=== PATIENT | male | born 1955 | race Hispanic/Latino ===

== ENCOUNTER 2025-02-02 10:35 | Inpatient (IN) | payer OTHER ==
[~2025-02-02] VITALS: Ht 172.7 cm; Wt 107.5 kg
--- NOTE | 2025-02-02 10:53 | ERN ---
ED Note History of Present Illness Stated Complaint: ABNORMAL LABS Chief Complaint: Low Back Pain/Injury Time Seen by MD: 10:39 Dictation: Is a 69-year-old male [facility] of thoracic pain he has had for 1-1/2 months runs down his left leg. He denies any fever chills trauma. no change in bowel or bladder function he had some labs with the him that were [facility] the [facility] [place] [id number] WBCs. Etiology of the leukocytosis is unknown. He has not been referred to a neurosurgeon, was told to go to the nearest emergency room for follow up and management. Back braces in place Allergies: Coded Allergies: No Known Drug Allergies (Unverified Allergy, Unknown, 02/02/25) Past Medical History Past Medical History: No Pertinent History Surgical History: None RN Note Reviewed/Agreed w/PFSH: Yes Review of System Dictation CONSTITUTIONAL: Negative except for HPI HEAD/FACE: Negative except for HPI EENT: Negative except for HPI RESPIRATORY: Negative except for HPI GASTROINTESTINAL/ABDOMINAL: Negative except for HPI GENITOURINARY: Negative except for HPI MUSCULOSKELETAL: Negative except for HPI thoracic and lumbar pain with left sciatica INTEGUMENTARY: Negative except for HPI NEUROLOGICAL/PSYCH: Negative except for HPI HEMATOLOGIC/LYMPHATIC: Negative except for HPI All Systems Negative, Except as noted above. 13 point review of systems assessed and all negative except for above. Initial Vital Sign VS Vital Signs Date Time Temp Pulse Resp B/P (MAP) Pulse Ox O2 Delivery O2 Flow Rate FiO2 02/02/25 10:41 98.2 89 16 178/95 96 Room Air 0 02/02/25 10:58 21 Physical Exam Dictation Vital Signs reviewed General Appearance: Alert, oriented x 3, monitor acute distress, well developed, nourished. Head and Face: non-traumatic. Eyes: PERRL, pink conjunctivas, eyelid no trauma, anterior chamber with arcus senilis. Ears: Pinnas intact and no signs of trauma or erythema ear canals clear and no discharge TM no erythema Nose: No discharge, no bleeding. Oropharynx: Mouth normal, tongue pink, pharynx clear,no erythema, tonsils no exudates, no abscesses noted, mucous membrane moist Neck: Supple, non-tender, no thyromegaly, no masses, no JVD, no bruits Breast:Deferred Chest:No tenderness, no crepitus, no paradoxical movement, no retractions Lungs:Clear, well-ventilated, symmetric, no rales, no wheezing, no rhonchi, no stridor, good breath sounds bilaterally Heart: Regular rate, regular rhythm, no murmur, no gallops Vascular: no peripheral edema, Abdomen: Soft, positive bowel sounds, nondistended, no guarding, nontender, no rebound, no masses no hepatomegaly, no splenomegaly, no Williamson's sign, no hernias. Rectal: Deferred Genital: Deferred Neurological: Normal speech, motor function intact, sensory function intact Musculoskeletal: Neck nontender, full range of motion, moderate midline thoracic and lumbosacral tenderness. Negative straight leg raise to 10 bilateral Extremities: nontender, full range of motion Skin: Color pink, dry, no turgor, no rash, no lacerations, no abrasions, no contusions. Lymphatic: Deferred Results (Laboratory/Radiology) Laboratory/Radiology Laboratory Tests Test 02/02/25 10:56 02/02/25 12:08 02/02/25 12:20 02/02/25 12:33 White Blood Count 15.8 K/uL (4.8-10.8) H Red Blood Count 5.48 MIL/uL (4.50-6.20) Hemoglobin 15.5 g/dL (14.0-18.0) Hematocrit 45.7 % (42-54) Mean Corpuscular Volume 83.4 fL (79-99) Mean Corpuscular Hemoglobin 28.3 pg (27.0-33.0) Mean Corpuscular Hemoglobin Concent 33.9 g/dL (32.0-36.0) Red Cell Distribution Width 14.6 % (11.0-15.5) Platelet Count 335 K/uL (130-400) Mean Platelet Volume 9.1 fL (7.5-10.5) Immature Granulocyte % (Auto) 0.6 % (0-1) Neutrophils (%) (Auto) 62.3 % (40.0-77.0) Lymphocytes (%) (Auto) 26.9 % (21.0-51.0) Monocytes (%) (Auto) 8.1 % (3.0-13.0) Eosinophils (%) (Auto) 1.3 % (0.0-8.0) Basophils (%) (Auto) 0.8 % (0.0-5.0) Neutrophils # (Auto) 9.8 K/uL (1.8-7.7) H Lymphocytes # (Auto) 4.2 K/uL (1.0-4.8) Monocytes # (Auto) 1.3 K/uL (0.1-1.0) H Eosinophils # (Auto) 0.21 K/uL (0.00-0.70) Basophils # (Auto) 0.12 K/uL (0.00-0.20) Absolute Immature Granulocyte (auto 0.10 K/uL (0-1) Nucleated Red Blood Cells 0.0 % (0.0-0.19) Sodium Level 136 mmol/L (136-145) Potassium Level 3.6 mmol/L (3.5-5.1) Chloride Level 100 mmol/L (101-111) L Carbon Dioxide Level 30 mmol/L (21-32) Blood Urea Nitrogen 8 mg/dL (7-18) Creatinine 0.7 mg/dL (0.5-1.3) Glomerular Filtration Rate Calc 100 mL/min (>90) Random Glucose 253 mg/dL (70-105) H Total Calcium 8.9 mg/dL (8.5-10.1) Influenza Type A Antigen Negative For Type A Influenza Type B Antigen Negative For Type B SARS-CoV-2 Antigen (Rapid) PRESUMPTIVE NEGATIVE Group A Streptococcus Rapid negative (NEGATIVE) Lactic Acid Level 1.2 mmol/L (0.8-2.5) Urine Color LIGHT-YELLOW (YELLOW) Urine Appearance CLEAR (CLEAR) Urine pH 7.0 (5.0-8.0) Urine Specific [place] 1.009 (1.001-1.031) Urine Protein NEGATIVE mg/dL (NEGATIVE) Urine Glucose (UA) 500 mg/dL (NEGATIVE) H Urine Ketones NEGATIVE mg/dL (NEGATIVE) Urine Occult Blood NEGATIVE (NEGATIVE) Urine Nitrate NEGATIVE (NEGATIVE) Urine Bilirubin NEGATIVE mg/dL (NEGATIVE) Urine Urobilinogen 0.2 mg/dL (0.2-1.0) Urine Leukocyte Esterase 75 Oscar/uL (NEGATIVE) H Urine RBC 0-1 /HPF (0-1) Urine WBC 2-5 /HPF (0-1) H Urine Squamous Epithelial Cells RARE /HPF (0-2) Urine Transitional Epithelial Cells RARE /HPF (None Seen) Urine Bacteria RARE /HPF (None Seen) CHEST 1VW HISTORY: Shortness of breath COMPARISON: None FINDINGS: A frontal projection of the chest was obtained. No acute pulmonary infiltrates is seen. The heart is normal in size. Prominent interstitial markings are seen. No evidence of aortic calcification is seen. IMPRESSION: 1. No acute pulmonary infiltrate is seen. FINDINGS: ON NONCONTRAST IMAGING: ABDOMEN: Heart size is normal. Coronary arterial wall calcific plaque noted. Visible lung bases are clear. No abnormal renal calcifications, hydronephrosis, perinephric inflammation, or proximal hydroureter detected. Residual contrast within the urinary system. The liver is normal in size and smooth in contour without biliary duct dilation. The spleen is normal in size and attenuation. The gallbladder appears normal. The pancreas appears normal without pancreatic duct dilation. The adrenal glands appear normal. No significant abdominal, retrocrural or retroperitoneal adenopathy noted. No evidence for intra-abdominal free air or organized fluid collection. Mild calcific plaque is noted along the abdominal aortic and iliac vessel mcmullen without aneurysmal dilation. PELVIS: Very small fat-containing nonobstructing right inguinal hernia. No abnormal calcifications within the urinary bladder or distal ureters. No evidence for free air or organized pelvic fluid collection. No significant pelvic adenopathy detected. Visualized small and large bowel loops appear unremarkable. Terminal ileum appears unremarkable. The appendix appears normal. Chronic bilateral L5 spondylolysis contributing to low-grade (14 mm) anterolisthesis of L5 upon S1. Moderate to severe disc height loss at the same level. Secondary at least moderate bilateral neuroforaminal narrowing. Shallow lumbar levoscoliosis. Multilevel mild anterior endplate osteophytic spurring. Multilevel moderate bilateral facet disease, including moderate bilateral hypertrophic facet disease at the L3-L4 level, L4-L5 level, and much less pronounced at the L5-S1 level. IMPRESSION: Very small fat-containing nonobstructing right inguinal hernia without evidence for any acute intra-abdominal or pelvic process. Chronic bilateral L5 spondylolysis contributing to low-grade (14 mm) anterolisthesis of L5 upon S1, and secondary at least moderate bilateral neuroforaminal narrowing without any significant central canal stenosis. Arteriosclerotic disease as described. he spleen is normal in size and attenuation. The gallbladder appears normal. The pancreas appears normal without pancreatic duct dilation. The adrenal glands appear normal. No significant abdominal, retrocrural or retroperitoneal adenopathy noted. No evidence for intra-abdominal free air or organized fluid collection. Mild calcific plaque is noted along the abdominal aortic and iliac vessel mcmullen without aneurysmal dilation. PELVIS: Very small fat-containing nonobstructing right inguinal hernia. No abnormal calcifications within the urinary bladder or distal ureters. No evidence for free air or organized pelvic fluid collection. No significant pelvic adenopathy detected. Visualized small and large bowel loops appear unremarkable. Terminal ileum appears unremarkable. The appendix appears normal. Chronic bilateral L5 spondylolysis contributing to low-grade (14 mm) anterolisthesis of L5 upon S1. Moderate to severe disc height loss at the same level. Secondary at least moderate bilateral neuroforaminal narrowing. Shallow lumbar levoscoliosis. Multilevel mild anterior endplate osteophytic spurring. Multilevel moderate bilateral facet disease, including moderate bilateral hypertrophic facet disease at the L3-L4 level, L4-L5 level, and much less pronounced at the L5-S1 level. IMPRESSION: Very small fat-containing nonobstructing right inguinal hernia without evidence for any acute intra-abdominal or pelvic process. Chronic bilateral L5 spondylolysis contributing to low-grade (14 mm) anterolisthesis of L5 upon S1, and secondary at least moderate bilateral neuroforaminal narrowing without any significant central canal stenosis. Arteriosclerotic disease as described. Labs Reviewed?: Yes ED Course ED Course Orders Procedure Category Date Status Time Cbc With Differential LAB 02/02/25 Complete 10:43 Urinalysis Profile LAB 02/02/25 Complete 10:43 Basic Metabolic Panel LAB 02/02/25 Complete 10:43 Saline Lock Iv CPOE 02/02/25 Transmitted 10:43 Ketorolac PHA 02/02/25 Complete Tromethamine 30mg/Ml 11:00 Blood Cult SHANIA 02/02/25 In Process 11:19 Lactic Acid LAB 02/02/25 Complete 11:19 Covid19 (Sars Antigen LAB 02/02/25 Complete Rapid) 11:21 Influenza Type A & B, LAB 02/02/25 Complete Rapid 11:21 Rapid (Group A Strep) LAB 02/02/25 Complete 11:21 Chest 1vw RAD 02/02/25 Resulted 11:21 Ct Thoracic Spine W/ CT 02/02/25 Resulted Contrast 11:21 Culture Urine SHANIA 02/02/25 In Process 13:12 Iohexol (Omnipaque) PHA 02/02/25 Complete 14:34 Ct Lumbar Spine W/O CT 02/02/25 Resulted Contrast 16:49 Ct Abdomen/Pelvis W/O CT 02/02/25 Resulted Contrast 16:49 *Nursing CPOE 02/02/25 Transmitted Communication: 17:55 Admit Orders ADM 02/02/25 Transmitted 19:00 Vital Signs Every 4 CPOE 02/02/25 Transmitted Hours 19:21 I&O Q Shift CPOE 02/02/25 Transmitted 19:21 Activity: Bed Rest CPOE 02/02/25 Transmitted 19:21 Heart Healthy Diet DIET 02/03/25 Transmitted Breakfast O2 Order RT 02/02/25 Transmitted 19:21 Albuterol 0.083% PHA 02/02/25 In Process 2.5mg/3ml (Proventil 19:30 Ipratropium 0.5 PHA 02/02/25 In Process Mg/2.5 Ml Inh 19:30 Cbc Without LAB 02/03/25 Verified Differential 04:00 Basic Metabolic Panel LAB 02/03/25 Verified 04:00 Magnesium LAB 02/03/25 Verified 04:00 Phosphorus LAB 02/03/25 Verified 04:00 Thyroid Stimulating LAB 02/03/25 Verified Hormone 04:00 Famotidine 20mg Tab PHA 02/02/25 In Process (Pepcid 20mg Tab) 21:00 Acetaminophen 325 Tab PHA 02/02/25 In Process (Tylenol 325mg Tab 19:30 Acetaminophen 650mg PHA 02/02/25 In Process Supp (Tylenol 650mg 19:30 Hydrocodone/Apap PHA 02/02/25 In Process ([place] 5/325mg) 19:30 Lactulose 20 Gm/30 Ml PHA 02/02/25 In Process Udcup (Constulose 19:30 Docusate Sodium 100 PHA 02/02/25 In Process Mg Cap (Colace 100mg 19:30 Temazepam 15 Mg Cap PHA 02/02/25 In Process (Restoril 15 Mg Cap) 19:30 Ondansetron 4mg Inj PHA 02/02/25 In Process (Zofran 4mg Inj) 19:30 Labetalol 20mg Syg PHA 02/02/25 Logged (Trandate 20mg Syg) 19:30 Telemetry Monitoring CPOE 02/02/25 Transmitted 19:21 Magnesium 2gm Premix PHA 02/02/25 Logged 50ml (Magnesium 2gm 19:30 Initiate Hypoglycemia DARRICK 02/02/25 In Process Protocol 19:21 Dextrose 50%-Water PHA 02/02/25 Logged (D50w) 19:30 Glucagon 1mg Kit PHA 02/02/25 Logged (Glucagon 1mg Kit) 19:30 Initiate Po DARRICK 02/02/25 In Process Hypokalemia Protoc 19:21 Potassium Chloride PHA 02/02/25 Logged 20meq/100ml ([place] 19:30 Potassium Chl 10% PHA 02/02/25 Logged Elixir 20meq (Kcl 10% 19:30 Potassium Chloride PHA 02/02/25 Logged 20meq Er (K-Dur/Klor- 19:30 Notify Physician If CPOE 02/02/25 Transmitted There Is 19:21 Notify Md On The Next CPOE 02/02/25 Transmitted 19:21 Notify Md On The CPOE 02/02/25 Transmitted Next(Cont.) 19:21 Ceftriaxone 2gm Vial PHA 02/02/25 Logged (Rocephin 2gm Inj) 19:30 Ketorolac PHA 02/02/25 Transmitted Tromethamine 15mg/Ml 20:00 Lidocaine (Lidocaine PHA 02/02/25 Transmitted Patch 4%) 20:00 Baclofen (Baclofen) PHA 02/02/25 Transmitted 19:40 Drug Screen Urine LAB 02/02/25 Logged 19:33 Current Medications Medications (Trade) Dose Ordered Sig/Yane Route PRN Reason Start Time Stop Time Status Last Admin Dose Admin Iohexol (Omnipaque) 35,000 mg STK-MED ONCE IV 02/02/25 14:34 02/02/25 14:35 DC Ketorolac Tromethamine (toRADol) 30 mg ONCE ONCE IVP 02/02/25 11:00 02/02/25 11:03 DC 02/02/25 11:07 Vital Signs Date Time Temp Pulse Resp B/P (MAP) Pulse Ox O2 Delivery O2 Flow Rate FiO2 02/02/25 18:15 98.6 71 18 155/64 96 Room Air* 0 02/02/25 17:00 98.6 69 18 127/47 98 Room Air* 0 02/02/25 16:20 98.1 67 20 163/79 97 Room Air* 0 02/02/25 15:00 98.1 70 20 155/67 98 Room Air* 0 02/02/25 14:00 98.1 66 18 129/93 96 Room Air* 0 02/02/25 12:54 98.1 69 18 163/86 98 Room Air* 0 02/02/25 10:58 81 18 150/83 98 Room Air* 0 02/02/25 10:41 98.2 89 16 178/95 96 Room Air 0 1610/, REVIEWED ALL LABS TO INCLUDE CT OF THE THORACIC SPINE CHEST X- RAY ETC. HE AGREED TO ADMIT PATIENT FOR SIRS CRITERIA 1644/ct lum and abd/pel ordered after discussion with hospitalist and he felt the need for additional imaging. 1909/PATIENT WAS ACCEPTED BY [facility] AFTER REVIEW OF CT LABS AND INTERVENTIONS FOR PAIN. Medical Decision Making MDM MDM: DIFFERENTIAL DIAGNOSIS: SPINAL ABSCESS/SIR/PNEUMONIA/BRONCHITIS/SARS COVID/INFLUENZA/ELECTROLYTE IMBALANCE/DEHYDRATION RATIONALE: TESTS CONSIDERED AND ORDERED SECONDARY TO SHARED DECISION MAKING INCLUDE: LABS, AND RADIOLOGY PREVIOUS OUTSIDE RECORDS REVIEWED: OLD ER VISITS. RISK OF COMPLICATION AND/OR MORBIDITY OR MORTALITY OF PATIENT MANAGEMENT: MILD MEDICATIONS-PER MEDICATION RECONCILIATION NEED FOR HOSPITALIZATION: PATIENT DOES MEET CRITERIA FOR HOSPITALIZATION. PATIENT WILL NEED ADMITTED FOR SIRS NEED FOR EMERGENCY MAJOR/MINOR SURGERY: NO THERE ARE NO SOCIAL CONCERNS WITH THIS PATIENT. PRESCRIPTION DRUG MANAGEMENT PRESCRIPTIONS WILL INCLUDE SYMPTOMATIC CARE PATIENT'S PRIOR EXTERNAL MEDICAL RECORDS FROM OTHER ER VISITS WERE REVIEWED BY ME INDICATED. PRIOR TESTING AND RESULTS FROM PREVIOUS VISITS WERE REVIEWED. PRIOR TESTS WERE TAKEN INTO ACCOUNT WITH MEDICAL DECISION MAKING AND RESOURCE UTILIZATION, INDEPENDENT HISTORIAN/HISTORIANS WERE USED TO OBTAIN COMPLETE MEDICAL HISTORY. I INDEPENDENTLY INTERPRETED THE TEST THAT WERE PERFORMED, RESULTS WERE REVIEWED BY ME AND CONSIDERED FINDINGS ON RADIOLOGY IF ORDERED. MEDICAL MANAGEMENT AND EXAMINATION INTERPRETATION DISCUSSIONS WERE HAD BY ME WITH OTHER QUALIFIED HEALTHCARE PROFESSIONALS INDICATED FOR THE PATIENT'S CARE. DX & DISP Disposition: Inpatient Decision to Admit Time: 16:00 Departure Impression: Primary Impression: Systemic inflammatory response syndrome (SIRS) Additional Impressions: Hypochloremia, Uncontrolled diabetes mellitus, Spondylosis of thoracic spine with radiculopathy, Inguinal hernia Condition: Stable Referrals: SELF,REFERRAL (PCP) Time of Disposition: 16:00 I have reviewed the case, and I agree with, Diagnosis and Plan VAMSHI BARRIOS February 02, 2025 10:53 JM GARZA NP February 02, 2025 16:02
[2025-02-02 11:03] LABS: BASOPHILS # (AUTO) 0.12 K/uL (0.00-0.20); BASOPHILS % (AUTO) 0.8 % (0.0-5.0); EOSINOPHILS # (AUTO) 0.21 K/uL (0.00-0.70); EOSINOPHILS % (AUTO) 1.3 % (0.0-8.0); HEMATOCRIT 45.7 % (42-54); LYMPHOCYTES # (AUTO) 4.2 K/uL (1.0-4.8); LYMPHOCYTES % (AUTO) 26.9 % (21.0-51.0); MEAN CORPUSCULAR HEMOGLOBIN 28.3 pg (27.0-33.0); MEAN CORPUSCULAR HGB CONC 33.9 g/dL (32.0-36.0); MEAN CORPUSCULAR VOLUME 83.4 fL (79-99); MONOCYTES # (AUTO) 1.3 K/uL (0.1-1.0); MONOCYTES % (AUTO) 8.1 % (3.0-13.0); NEUTROPHILS # (AUTO) 9.8 K/uL (1.8-7.7); NEUTROPHILS % (AUTO) 62.3 % (40.0-77.0); PLATELET COUNT (AUTO) 335 K/uL (130-400); RED BLOOD CELL COUNT(AUTO) 5.48 MIL/uL (4.50-6.20); RED CELL DISTRIBUTION WIDTH 14.6 % (11.0-15.5); WHITE BLOOD COUNT (AUTO) 15.8 K/uL (4.8-10.8)
[2025-02-02] MEDS: ketOROlac 30MG VIAL (30MG/ML) IVP ONE (11:07)
[2025-02-02 11:09] LABS: CREATININE 0.7 mg/dL (0.5-1.3); POTASSIUM 3.6 mmol/L (3.5-5.1)
--- NOTE | 2025-02-02 12:43 | HMCIMG ---
CHEST 1VW HISTORY: Shortness of breath COMPARISON: None FINDINGS: A frontal projection of the chest was obtained. No acute pulmonary infiltrates is seen. The heart is normal in size. Prominent interstitial markings are seen. No evidence of aortic calcification is seen. IMPRESSION: 1. No acute pulmonary infiltrate is seen.
[2025-02-02 12:44] LABS: RAPID GROUP A STREP negative (NEGATIVE)
[2025-02-02 13:02] LABS: COVID19 (SARS ANTIGEN RAPID) PRESUMPTIVE NEGATIVE (NEGATIVE); INFLUENZA TYPE A Negative For Type A (NEGATIVE); INFLUENZA TYPE B Negative For Type B (NEGATIVE)
[2025-02-02 13:09] LABS: APPEARANCE,URINE CLEAR (CLEAR); BILIRUBIN,URINE NEGATIVE (NEGATIVE); COLOR,URINE LIGHT-YELLOW (YELLOW); GLUCOSE, URINE (UA) 500 mg/dL (NEGATIVE); KETONES,URINE NEGATIVE (NEGATIVE); LEUKOCYTE ESTERASE ,URINE 75 Leu/uL (NEGATIVE); NITRATE,URINE NEGATIVE (NEGATIVE); OCCULT BLOOD,URINE NEGATIVE (NEGATIVE); PROTEIN,URINE NEGATIVE (NEGATIVE); UROBILINOGEN,URINE 0.2 mg/dL (0.2-1.0)
[2025-02-02 13:12] LABS: ADD UA MICROSCOPIC YES
[2025-02-02 13:18] LABS: BACTERIA,URINE RARE /HPF (None Seen); MUCUS,URINE RARE LPF (None Seen); RBC,URINE 0-1 /HPF (0-1); SQUAMOUS EPITHELIAL CELL,UR RARE /HPF (0-2); TRANSITIONAL EPI CELLS,URINE RARE /HPF (None Seen)
[2025-02-02] MEDS ORDERED: IOHEXOL 350 MG/ML 100ML INFUS..BTL IV ONE (14:34)
--- NOTE | 2025-02-02 15:49 | HMCIMG ---
CT THORACIC SPINE W/ CONTRAST HISTORY: Pain COMPARISON: None TECHNIQUE: Multiple sequential axial images of the thoracic spine were obtained including post processing sagittal and coronal reconstruction images. Patient was not given contrast through intravenous route. FINDINGS: There is no loss of vertebral height. Evaluation for disc and cord pathology is limited with CT study. No evidence of fracture or dislocation is seen. There are degenerative changes with dorsal spine spondylosis. IMPRESSION: 1. No fracture is seen. DJD with evidence of spinal stenosis. CT was performed with one or more following dose reduction techniques: automated exposure control, adjustment of the mA and kv according to patient's size, or use of a iterative reconstruction technique.
--- NOTE | 2025-02-02 19:08 | HP ---
PRETTY HISTORY AND PHYSICAL Date of Service: February 02, 2025 Time of Service: 19:08 PCP: [place] [facility] Attending/supervising physicians: Dr. Espinoza and Dr. Camacho HISTORY OF PRESENT ILLNESS: Mr. Wu is a 69-year-old male who presented to [facility]. Per ED provider report the patient has had for 1-1/2 months runs down his left leg. The patient denied fever, chills, or trauma, no change in bowel or bladder function. The patient had some labs with the him that were drawn on 01/29 from the [place] [id number] WBCs. Etiology of the leukocytosis is unknown. He has not been referred to a neurosurgeon, and was told to go to the nearest emergency room for follow up and management. Back braces in place. Chest x-ray: No acute pulmonary infiltrates. CT thoracic spine with contrast: No fracture is seen. DJD with evidence of spinal stenosis. CT abdomen and pelvis without contrast: Very small fat-containing nonobstructing right inguinal hernia without evidence for any acute intra-abdominal or pelvic process. Chronic bilateral L5 spondylolysis contributing to low-grade (14 mm) anterolisthesis of L5 upon S1, and secondary at least moderate bilateral neuroforaminal narrowing without any significant central canal stenosis. Arteriosclerotic disease as described. CT lumbar spine without contrast: Very small fat-containing nonobstructing right inguinal hernia without evidence for any acute intra-abdominal or pelvic process. Chronic bilateral L5 spondylolysis contributing to low-grade (14 mm) anterolisthesis of L5 upon S1, and secondary at least moderate bilateral neuroforaminal narrowing without any significant central canal stenosis. Arteriosclerotic disease. ED provider reports that the patient was seen by Dr. Hess, [facility] hospitalist, ER physician, and himself. ED provider request patient be admitted to the hospital with a diagnosis of systemic inflammatory response syndrome (sirs), hypochloremia, uncontrolled diabetes mellitus, spondylosis of thoracic spine with radiculopathy, inguinal hernia. I assessed the patient at bedside in room number ED 19. The patient appeared comfortable, was lying flat on the right side, breathing was even, unlabored, and in no distress. The patient is slow to understand, but answered appro priately. I informed the patient of labs, diagnostics, and plan of care. He verbalized understanding and is agreement with the plan. Plan and assessment are listed below. REVIEW OF SYSTEMS 12-point ROS reviewed with the patient. All pertinent positives mentioned above. Otherwise negative, noncontributory, non-pertinent. PAST MEDICAL HISTORY: As mentioned above PAST SURGICAL HISTORY: None PAST SOCIAL HISTORY: Denied alcohol, tobacco, illicit drug use FAMILY HISTORY: Noncontributory Coded Allergies: No Known Drug Allergies (Unverified Allergy, Unknown, 02/02/25) PHYSICAL EXAM GENERAL APPEARANCE: The patient is awake, alert, and oriented, in no acute cardiopulmonary distress. NEUROLOGICAL: Cranial nerves II-XII grossly intact. Motor is 5/5 in bilateral upper and lower extremities proximal to distal. No sensory deficits. HEENT: Face is symmetric. Pupils are equal and reactive. Extraocular movements are intact. NECK: Supple. No JVD. No thyromegaly. No submental, submandibular, pre- /postauricular, occipital or supraclavicular lymphadenopathy. CHEST: Normal chest expansion. No Telemetry. LUNGS: Absence of any rales, rhonchi or any wheezing. CARDIOVASCULAR: Regular. S1 and S2 normal. No appreciable rubs, murmurs or gallops. ABDOMEN: Soft, nontender, and nondistended. There is no rebound, voluntary guarding, or rigidity. : Deferred. No Resendiz. EXTREMITIES: Non-edematous and not cyanotic. No clubbing. Good capillary refill. SKIN: No skin breakdown. Vital Sign (Last 24 Hours) 02/02/25 17:00 Temp 98.6 Pulse 69 Resp 18 B/P (MAP) 127/47 Pulse Ox 98 O2 Delivery Room Air* O2 Flow Rate 0 FiO2 21 LABS: Laboratory: Test 02/02/25 12:33 02/02/25 12:20 02/02/25 12:08 02/02/25 10:56 Range/Units Urine Color LIGHT-YELLOW YELLOW Urine Appearance CLEAR CLEAR Urine pH 7.0 5.0-8.0 Urine Specific [place] 1.009 1.001-1.031 Urine Protein NEGATIVE NEGATIVE mg/dL Urine Glucose (UA) 500 H NEGATIVE mg/dL Urine Ketones NEGATIVE NEGATIVE mg/dL Urine Occult Blood NEGATIVE NEGATIVE Urine Nitrate NEGATIVE NEGATIVE Urine Bilirubin NEGATIVE NEGATIVE mg/dL Urine Urobilinogen 0.2 0.2-1.0 mg/dL Urine Leukocyte Esterase 75 H NEGATIVE Oscar/uL Urine RBC 0-1 0-1 /HPF Urine WBC 2-5 H 0-1 /HPF Urine Squamous Epithelial Cells RARE 0-2 /HPF Urine Transitional Epithelial Cells RARE None Seen /HPF Urine Bacteria RARE None Seen /HPF Lactic Acid Level 1.2 0.8-2.5 mmol/L Influenza Type A Antigen Negative For Type A NEGATIVE Influenza Type B Antigen Negative For Type B NEGATIVE SARS-CoV-2 Antigen (Rapid) PRESUMPTIVE NEGATIVE NEGATIVE Group A Streptococcus Rapid negative NEGATIVE White Blood Count 15.8 H 4.8-10.8 K/uL Red Blood Count 5.48 4.50-6.20 MIL/uL Hemoglobin 15.5 14.0-18.0 g/dL Hematocrit 45.7 42-54 % Mean Corpuscular Volume 83.4 79-99 fL Mean Corpuscular Hemoglobin 28.3 27.0-33.0 pg Mean Corpuscular Hemoglobin Concent 33.9 32.0-36.0 g/dL Red Cell Distribution Width 14.6 11.0-15.5 % Platelet Count 335 130-400 K/uL Mean Platelet Volume 9.1 7.5-10.5 fL Immature Granulocyte % (Auto) 0.6 0-1 % Neutrophils (%) (Auto) 62.3 40.0-77.0 % Lymphocytes (%) (Auto) 26.9 21.0-51.0 % Monocytes (%) (Auto) 8.1 3.0-13.0 % Eosinophils (%) (Auto) 1.3 0.0-8.0 % Basophils (%) (Auto) 0.8 0.0-5.0 % Neutrophils # (Auto) 9.8 H 1.8-7.7 K/uL Lymphocytes # (Auto) 4.2 1.0-4.8 K/uL Monocytes # (Auto) 1.3 H 0.1-1.0 K/uL Eosinophils # (Auto) 0.21 0.00-0.70 K/uL Basophils # (Auto) 0.12 0.00-0.20 K/uL Absolute Immature Granulocyte (auto 0.10 0-1 K/uL Nucleated Red Blood Cells 0.0 0.0-0.19 % Sodium Level 136 136-145 mmol/L Potassium Level 3.6 3.5-5.1 mmol/L Chloride Level 100 L 101-111 mmol/L Carbon Dioxide Level 30 21-32 mmol/L Blood Urea Nitrogen 8 7-18 mg/dL Creatinine 0.7 0.5-1.3 mg/dL Glomerular Filtration Rate Calc 100 >90 mL/min Random Glucose 253 H 70-105 mg/dL Total Calcium 8.9 8.5-10.1 mg/dL DIAGNOSTICS / RADIOLOGY: [ ] ASSESSMENT: DJD with evidence of spinal stenosis, per CT on 02/02/2025 Chronic bilateral L5 spondylolysis contributing to low-grade (14 mm) anterolisthesis of L5 upon S1, per CT on 02/02/2025 Moderate bilateral neuroforaminal narrowing without any significant central canal stenosis, per lumbar spine CT on 02/02/2025 Spondylosis of thoracic spine with radiculopathy Acute complicated cystitis, POA Leukocytosis, POA Systemic inflammatory response syndrome (SIRS) Acute on chronic back pain, POA Hyperglycemia with a history of DM, POA Hypochloremia, POA Fat-containing nonobstructing right inguinal hernia without evidence for any acute intra-abdominal or pelvic process, per CT on 02/02/2025 Arteriosclerotic disease Cocaine abuse and marijuana abuse, per UA on 02/02/2025 PLAN: Admit to medical floor with tele pack. Consult Dr. Banuelos for evaluation of acute on chronic back intractable pain with moderate bilateral neuroforaminal narrowing. Start Rocephin 2 g IV Q 24 hours. Follow urine cultures. Titrate antibiotic based on urine cultures. P.r.n. medications for: Pain management, fever, nausea, vomiting, constipation, hypertension. Apply lidocaine patch Q 24 hours Baclofen 10 mg p.o. t.i.d.. P.r.n. pain medication (Toradol IV and [place] p.o.) Blood pressure checks every 4 hours and as needed. Monitor renal and liver function. Monitor electrolytes and treat accordingly. GI and DVT prophylaxis. ADVANCED CARE PLANNING 1. Which of the following were discussed? Hospice Care - No Therapeutic options - Yes Advance Directives - Yes Other discussions - 2. Discussed with who? Patient 3. Voluntary nature of this service was explained to the patient? Yes 4. Amount of time spent - __ over 35 minutes 5. Reviewed by Physician? (if this service was performed by NPP) Yes ATTESTATION BY PHYSICIAN I have seen and examined the patient. I reviewed the documentation, medical decision making, and treatment plan as noted by the mid-level provider above. I agree with the findings and plan of care. ALANA GONZALEZ [facility] February 02, 2025 19:08
--- NOTE | 2025-02-02 19:19 | HMCIMG ---
CT ABDOMEN WITHOUT CONTRAST. CT PELVIS WITHOUT CONTRAST. CT LUMBAR SPINE WITHOUT CONTRAST INDICATION: Diffuse lower abdominal pain TECHNIQUE: Routine transaxial imaging using 5 mm slice thickness through the abdomen and pelvis without the administration of IV contrast. Thin slice reconstructions are also provided. Coronal and sagittal reformatted images acquired for interpretation. CT was performed with one or more of the following dose reduction techniques: Automated exposure control, adjustment of the mA and/or kV according to patient size, or use of iterative reconstruction technique. COMPARISON: None FINDINGS: ON NONCONTRAST IMAGING: ABDOMEN: Heart size is normal. Coronary arterial wall calcific plaque noted. Visible lung bases are clear. No abnormal renal calcifications, hydronephrosis, perinephric inflammation, or proximal hydroureter detected. Residual contrast within the urinary system. The liver is normal in size and smooth in contour without biliary duct dilation. The spleen is normal in size and attenuation. The gallbladder appears normal. The pancreas appears normal without pancreatic duct dilation. The adrenal glands appear normal. No significant abdominal, retrocrural or retroperitoneal adenopathy noted. No evidence for intra-abdominal free air or organized fluid collection. Mild calcific plaque is noted along the abdominal aortic and iliac vessel [place] without aneurysmal dilation. PELVIS: Very small fat-containing nonobstructing right inguinal hernia. No abnormal calcifications within the urinary bladder or distal ureters. No evidence for free air or organized pelvic fluid collection. No significant pelvic adenopathy detected. Visualized small and large bowel loops appear unremarkable. Terminal ileum appears unremarkable. The appendix appears normal. Chronic bilateral L5 spondylolysis contributing to low-grade (14 mm) anterolisthesis of L5 upon S1. Moderate to severe disc height loss at the same level. Secondary at least moderate bilateral neuroforaminal narrowing. Shallow lumbar levoscoliosis. Multilevel mild anterior endplate osteophytic spurring. Multilevel moderate bilateral facet disease, including moderate bilateral hypertrophic facet disease at the L3-L4 level, L4-L5 level, and much less pronounced at the L5-S1 level. IMPRESSION: Very small fat-containing nonobstructing right inguinal hernia without evidence for any acute intra-abdominal or pelvic process. Chronic bilateral L5 spondylolysis contributing to low-grade (14 mm) anterolisthesis of L5 upon S1, and secondary at least moderate bilateral neuroforaminal narrowing without any significant central canal stenosis. Arteriosclerotic disease as described.
[2025-02-02] MEDS ORDERED: IpraTROPium 0.5 MG/2.5 ML INH IH PRN (19:30)
[2025-02-02] MEDS ORDERED: LAbetaLOL 20MG SYG IV PRN (19:30)
[2025-02-02] MEDS ORDERED: ondanSETRON 4MG INJ IVP PRN (19:30)
[2025-02-02] MEDS ORDERED: PoTASSium chl 10% ELIXIR 20MEQ 20 MEQ/15 ML UDCUP PO PRN (19:30)
[2025-02-02] MEDS ORDERED: acetaMINOPHEN 650 MG SUPPOSITORY RC PRN (19:30)
[2025-02-02] MEDS ORDERED: GLUCAGON 1MG KIT 1 MG ML IM PRN (19:30)
[2025-02-02] MEDS ORDERED: TEMAZepam 15 MG CAPSULE PO PRN (19:30)
[2025-02-02] MEDS ORDERED: ALBUTEROL 0.083% 2.5 MG/3 ML INH IH PRN (19:30)
[2025-02-02] MEDS ORDERED: PoTASSium chloRIDE 20MEQ/100ML 100 ML IV PRN (19:30)
[2025-02-02] MEDS ORDERED: DEXTROSE 50%-WATER 50 ML DISP.SYRIN IV PRN (19:30)
--- NOTE | 2025-02-02 19:30 | NUR ---
PT CARE ASSUMED AT THIS TIME
[2025-02-02] MEDS ORDERED: ketOROlac 15MG/ML VIAL (15MG/ML) IV PRN (20:00)
[2025-02-02] MEDS: cefTRIAXone 2GM VIAL IVPB SCH (20:05)
[2025-02-02] MEDS: BACLOFEN 10 MG TABLET PO SCH (20:06)
[2025-02-02] MEDS: LIDOCAINE 4% ADH..PATCH TP SCH (20:12)
--- NOTE | 2025-02-02 21:16 | NUR ---
ATTEMPT TO GIVE REPORT AT THIS TIME. NO ANSWER.
--- NOTE | 2025-02-02 21:25 | NUR ---
REPORT GIVEN TO ESVIN VICTORIA AT THIS TIME
[2025-02-02 21:45] VITALS: BP 165/74; PULSE 75; RESP 20; TEMP 98.3
[2025-02-02] MEDS: LACTULOSE 20 GM/30 ML UDCUP PO PRN (22:23)
[2025-02-02] MEDS: FAMOTIDINE 20MG TAB PO SCH (22:23)
[2025-02-02] MEDS: HYDROcodone/APAP 5/325 1 TAB TABLET PO PRN (22:27)
[2025-02-02 22:32] LABS: AMPHET/METH SCREEN,URINE NEGATIVE (NEGATIVE); BARBITURATE SCREEN, URINE NEGATIVE (NEGATIVE); BENZODIAZEPINES SCREEN,URINE NEGATIVE (NEGATIVE); CANNABINOID SCREEN,URINE POSITIVE (NEGATIVE); COCAINE SCREEN,URINE POSITIVE (NEGATIVE); OPIATE SCREEN,URINE NEGATIVE (NEGATIVE); PHENCYCLIDINE SCREEN,URINE NEGATIVE (NEGATIVE)
[2025-02-02] MEDS ORDERED: ACET-2123 PO (23:11)
[2025-02-02] MEDS ORDERED: PRED20TA3 PO (23:11)
[2025-02-02] MEDS ORDERED: GABA-534 PO (23:11)
[2025-02-02 23:13] VITALS: O2SAT 95
[2025-02-03] VITALS (11 sets, daily range): BP systolic 109–164; BP diastolic 57–83; PULSE 63–96; RESP 16–22; TEMP 97.2–98.2; O2SAT 95–97
[2025-02-03 04:33] LABS: HEMATOCRIT 45.5 % (42-54); MEAN CORPUSCULAR HEMOGLOBIN 27.9 pg (27.0-33.0); MEAN CORPUSCULAR HGB CONC 33.2 g/dL (32.0-36.0); MEAN CORPUSCULAR VOLUME 84.1 fL (79-99); RED BLOOD CELL COUNT(AUTO) 5.41 MIL/uL (4.50-6.20); RED CELL DISTRIBUTION WIDTH 14.6 % (11.0-15.5)
[2025-02-03 04:55] LABS: CREATININE 0.6 mg/dL (0.5-1.3); MAGNESIUM 1.9 mg/dL (1.80-2.40); PHOSPHORUS 3.6 mg/dL (2.5-4.9); POTASSIUM 3.7 mmol/L (3.5-5.1); THYROID STIMULATING HORMONE 2.34 uIU/mL (0.36-3.74)
[2025-02-03] MEDS: PoTASSium chloRIDE 20MEQ ER 20 MEQ ERTAB PO PRN (08:13)
[2025-02-03] MEDS: MAGNESIUM 2GM PREMIX 50ML 50 ML IV PRN (08:15)
--- NOTE | 2025-02-03 10:00 | NUR ---
nurse note Per Dr. Banuelos patient's pain may benefit from physical therapy, recommended MRI as well for further imaging if primary provider wishes, most likely chronic pain, no fractures on CT scans noted. No new interventions at this time per neurosurgery.
--- NOTE | 2025-02-03 11:15 | NUR ---
physician rounding Recommendation per Dr. Banuelos steroids PT continue with pain regimen MRI of spine, patient needing medication prior notified primary provider of recommendations, no new orders from Dr. Banuelos at this time
--- NOTE | 2025-02-03 13:00 | NUR ---
MET W PATIENT AT BEDSIDE. PATIENT CAME FOR BACK PAIN AND WAS VERY SLEEPY DURING INITIAL ASSESSMENT BECAUSE HE STATES HE FELT MUCH BETTER NOW. STATES HE USES A ROLLING WALKING TO AMBULATE, THE [facility] HAS DELIVERED IT LESS THAN A WEEK AGO. FOLLOWS WITH DR. CAMPUZANO AT THE [facility]. NO OTHER MOBILITY AIDS OR DME. NO PROVIDER SERVICES .STATES STILL DRIVES AND PROVIDES HIS OWN TRANSPORT. LIVES WITH IS , DENIES FINANCIAL STRAIN, AND PLAN IS TO RETURN TO HOME. ANTICIPATING DC IN 24-48 HRS Addendum: 02/03/25 at 1825 by NIKOLE RAPHAEL RN Amended: Links added.
[2025-02-03] MEDS: dexaMETHasone SOD PHOSPHATE 4 MG/ML 1ML VIAL IV SCH (13:12)
[2025-02-03] MEDS: ketOROlac 15MG/ML VIAL (15MG/ML) IV SCH (13:12)
--- NOTE | 2025-02-03 13:43 | PN ---
[facility] PROGRESS NOTE Date of Service: February 03, 2025 Time of Service: 13:40 SUBJECTIVE: [69-year-old male presented to the emergency department with lower back pain. He has been evaluated by neurosurgeon who recommended steroids and NSAIDs. His blood pressure is slightly elevated we will start patient on amlodipine 2.5 mg p.o. daily. ] REVIEW OF SYSTEMS 12-point ROS reviewed with the patient. All pertinent positives mentioned above. Otherwise negative, noncontributory, non-pertinent. PHYSICAL EXAM GENERAL APPEARANCE: The patient is awake, alert, and oriented, in no acute cardiopulmonary distress. NEUROLOGICAL: Cranial nerves II-XII grossly intact. Motor is 5/5 in bilateral upper and lower extremities proximal to distal. No sensory deficits. HEENT: Face is symmetric. Pupils are equal and reactive. Extraocular movements are intact. NECK: Supple. No JVD. No thyromegaly. No submental, submandibular, pre- /postauricular, occipital or supraclavicular lymphadenopathy. CHEST: Normal chest expansion. No Telemetry. LUNGS: Absence of any rales, rhonchi or any wheezing. CARDIOVASCULAR: Regular. S1 and S2 normal. No appreciable rubs, murmurs or gallops. ABDOMEN: Soft, nontender, and nondistended. There is no rebound, voluntary guarding, or rigidity. : Deferred. No Resendiz. EXTREMITIES: Non-edematous and not cyanotic. No clubbing. Good capillary refill. SKIN: No skin breakdown. Vital Signs (last 8hr) Date Time Temp Pulse Resp B/P (MAP) Pulse Ox O2 Delivery O2 Flow Rate FiO2 02/03/25 08:00 97.2 77 16 160/72 95 Room Air 21 02/03/25 08:00 95 Room Air* 0 21 02/03/25 06:44 63 16 N/A Room Air 21 LABS: Laboratory: Test 02/03/25 04:20 02/02/25 12:33 02/02/25 12:20 02/02/25 12:08 Range/Units White Blood Count 12.0 H 4.8-10.8 K/uL Red Blood Count 5.41 4.50-6.20 MIL/uL Hemoglobin 15.1 14.0-18.0 g/dL Hematocrit 45.5 42-54 % Mean Corpuscular Volume 84.1 79-99 fL Mean Corpuscular Hemoglobin 27.9 27.0-33.0 pg Mean Corpuscular Hemoglobin Concent 33.2 32.0-36.0 g/dL Red Cell Distribution Width 14.6 11.0-15.5 % Platelet Count 290 130-400 K/uL Mean Platelet Volume 9.1 7.5-10.5 fL Nucleated Red Blood Cells 0.0 0.0-0.19 % Sodium Level 140 136-145 mmol/L Potassium Level 3.7 3.5-5.1 mmol/L Chloride Level 104 101-111 mmol/L Carbon Dioxide Level 29 21-32 mmol/L Blood Urea Nitrogen 10 7-18 mg/dL Creatinine 0.6 0.5-1.3 mg/dL Glomerular Filtration Rate Calc 104 >90 mL/min Random Glucose 152 H 70-105 mg/dL Total Calcium 8.8 8.5-10.1 mg/dL Phosphorus Level 3.6 2.5-4.9 mg/dL Magnesium Level 1.90 1.80-2.40 mg/dL Thyroid Stimulating Hormone (TSH) 2.34 0.36-3.74 uIU/mL Urine Color LIGHT-YELLOW YELLOW Urine Appearance CLEAR CLEAR Urine pH 7.0 5.0-8.0 Urine Specific [place] 1.009 1.001-1.031 Urine Protein NEGATIVE NEGATIVE mg/dL Urine Glucose (UA) 500 H NEGATIVE mg/dL Urine Ketones NEGATIVE NEGATIVE mg/dL Urine Occult Blood NEGATIVE NEGATIVE Urine Nitrate NEGATIVE NEGATIVE Urine Bilirubin NEGATIVE NEGATIVE mg/dL Urine Urobilinogen 0.2 0.2-1.0 mg/dL Urine Leukocyte Esterase 75 H NEGATIVE Oscar/uL Urine RBC 0-1 0-1 /HPF Urine WBC 2-5 H 0-1 /HPF Urine Squamous Epithelial Cells RARE 0-2 /HPF Urine Transitional Epithelial Cells RARE None Seen /HPF Urine Bacteria RARE None Seen /HPF Urine Opiates Screen NEGATIVE NEGATIVE Urine Barbiturates Screen NEGATIVE NEGATIVE Urine Phencyclidine Screen NEGATIVE NEGATIVE Urine Amphetamines Screen NEGATIVE NEGATIVE Urine Benzodiazepines Screen NEGATIVE NEGATIVE Urine Cocaine Screen POSITIVE H NEGATIVE Urine Marijuana (THC) Screen POSITIVE H NEGATIVE Lactic Acid Level 1.2 0.8-2.5 mmol/L Influenza Type A Antigen Negative For Type A NEGATIVE Influenza Type B Antigen Negative For Type B NEGATIVE SARS-CoV-2 Antigen (Rapid) PRESUMPTIVE NEGATIVE NEGATIVE Group A Streptococcus Rapid negative NEGATIVE Test 02/02/25 10:56 Range/Units Immature Granulocyte % (Auto) 0.6 0-1 % Neutrophils (%) (Auto) 62.3 40.0-77.0 % Lymphocytes (%) (Auto) 26.9 21.0-51.0 % Monocytes (%) (Auto) 8.1 3.0-13.0 % Eosinophils (%) (Auto) 1.3 0.0-8.0 % Basophils (%) (Auto) 0.8 0.0-5.0 % Neutrophils # (Auto) 9.8 H 1.8-7.7 K/uL Lymphocytes # (Auto) 4.2 1.0-4.8 K/uL Monocytes # (Auto) 1.3 H 0.1-1.0 K/uL Eosinophils # (Auto) 0.21 0.00-0.70 K/uL Basophils # (Auto) 0.12 0.00-0.20 K/uL Absolute Immature Granulocyte (auto 0.10 0-1 K/uL Current Medications Medications (Trade) Dose Ordered Sig/Yane Route PRN Reason Start Time Stop Time Status Last Admin Dose Admin Acetaminophen (TYLenol 325MG TAB) 650 mg Q6H PRN PO FEVER/MILD PAIN LEVEL 1-3 02/02/25 19:30 03/04/25 19:29 Acetaminophen (TYLenol 650MG SUPPOSITORY) 650 mg Q6H PRN RC FEVER / MILD PAIN 1-3 IF NPO 02/02/25 19:30 03/04/25 19:29 Acetaminophen/ Hydrocodone Bitart (NORco 5/325MG) 1 tab Q6H PRN PO MILD PAIN (1-3) 02/02/25 19:30 02/07/25 19:29 02/03/25 08:14 1 TAB Albuterol Sulfate (Proventil 0.083% 2.5mg/3ml) 2.5 mg [id number] PRN IH SHORTNESS OF BREATH 02/02/25 19:30 03/04/25 19:29 Baclofen (Baclofen) 10 mg TID PO 02/02/25 19:40 03/04/25 19:39 02/03/25 13:12 10 MG Ceftriaxone Sodium (Rocephin 2gm Inj) 2 gm Q24H IVPB 02/02/25 19:30 02/12/25 19:29 02/02/25 20:05 2 GM Dexamethasone Sodium Phosphate (dexaMETHasone 4MG/ML 1ML VIAL) 4 mg DAILY IV 02/03/25 13:00 03/05/25 12:59 02/03/25 13:12 4 MG Dexamethasone Sodium Phosphate (dexaMETHasone 4MG/ML 1ML VIAL) 4 mg DAILY IV 02/04/25 09:00 02/03/25 12:55 DC Dextrose (D50w) 50 ml AD PRN IV HYPOGLYCEMIA PROTOCOL 02/02/25 19:30 03/04/25 19:29 Docusate Sodium (COLace 100MG CAP) 100 mg BID PRN PO c 02/02/25 19:30 03/04/25 19:29 Famotidine (Pepcid 20mg Tab) 20 mg BID PO 02/02/25 21:00 03/04/25 20:59 02/03/25 08:13 20 MG Glucagon (Glucagon 1mg Kit) 1 mg AD PRN IM HYPOGLYCEMIA PROTOCOL 02/02/25 19:30 03/04/25 19:29 Ipratropium [place] (AtrovENT UD) 0.5 mg [id number] PRN IH SHORTNESS OF BREATH/WHEEZING 02/02/25 19:30 03/04/25 19:29 Ketorolac Tromethamine (toRADol) 15 mg Q6H PRN IV MODERATE PAIN (4-6) 02/02/25 20:00 02/03/25 12:10 DC Ketorolac Tromethamine (toRADol) 15 mg TID IV 02/03/25 14:00 02/08/25 13:59 02/03/25 13:12 15 MG Labetalol HCl (TRANdate 20MG SYG) 10 mg Q2H PRN IV SBP GREATER THAN 160 02/02/25 19:30 03/04/25 19:29 Lactulose (Constulose 20gm/ 30ml Udcup) 20 gm Q6H PRN PO CONSTIPATION 02/02/25 19:30 03/04/25 19:29 02/02/25 22:23 20 GM Lidocaine (Lidocaine Patch 4%) 1 each DAILY TP 02/02/25 20:00 03/04/25 19:59 02/03/25 08:13 1 EACH Magnesium Sulfate 50 ml @ 0 mls/hr PROTOCOL PRN IV MAGNESIUM PROTOCOL 02/02/25 19:30 03/04/25 19:29 02/03/25 08:15 20 MLS/HR Ondansetron HCl (zoFRAN 4MG INJ) 4 mg Q6H PRN IVP NAUSEA/VOMITING 02/02/25 19:30 03/04/25 19:29 Potassium Chloride 100 ml @ 100 mls/hr AD PRN IV POTASSIUM PROTOCOL 02/02/25 19:30 03/04/25 19:29 Potassium Chloride (K-Dur/Klor-Con 20meq) 20 meq AD PRN PO POTASSIUM PROTOCOL 02/02/25 19:30 03/04/25 19:29 02/03/25 08:13 20 MEQ Potassium Chloride (KCl 10% Elixir 20meq/15ml) 20 meq AD PRN PO POTASSIUM PROTOCOL 02/02/25 19:30 03/04/25 19:29 Temazepam (restORIL 15 MG CAP) 15 mg HS PRN PO INSOMNIA/SLEEP 02/02/25 19:30 03/04/25 19:29 DIAGNOSTICS / RADIOLOGY: [ ] ASSESSMENT: DJD with evidence of spinal stenosis, per CT on 02/02/2025 Chronic bilateral L5 spondylolysis contributing to low-grade (14 mm) anterolisthesis of L5 upon S1, per CT on 02/02/2025 Moderate bilateral neuroforaminal narrowing without any significant central canal stenosis, per lumbar spine CT on 02/02/2025 Spondylosis of thoracic spine with radiculopathy Acute complicated cystitis, POA Leukocytosis, POA Systemic inflammatory response syndrome (SIRS) Acute on chronic back pain, POA Hyperglycemia with a history of DM, POA Hypochloremia, POA Fat-containing nonobstructing right inguinal hernia without evidence for any acute intra-abdominal or pelvic process, per CT on 02/02/2025 Arteriosclerotic disease Cocaine abuse and marijuana abuse, per UA on 02/02/2025 PLAN: Admit to medical floor with tele pack. We will follow Dr. Banuelos recommendations, start patient on dexamethasone4 mg IV, Toradol 50 mg IV every 8 hours, physical therapy to eval and treat Continue with Rocephin 2 g IV Q 24 hours. Follow urine cultures. Titrate antibiotic based on urine cultures. P.r.n. medications for: Pain management, fever, nausea, vomiting, constipation, hypertension. Apply lidocaine patch Q 24 hours Baclofen 10 mg p.o. t.i.d.. P.r.n. pain medication (Toradol IV and [place] p.o.) Blood pressure checks every 4 hours and as needed. Monitor renal and liver function. Monitor electrolytes and treat accordingly. GI and DVT prophylaxis. Case seen and evaluated with Dr. Shipley, above plan was formulated ATTESTATION BY PHYSICIAN I have seen and examined the patient. I reviewed the documentation, medical decision making, and treatment plan as noted by the mid-level provider above. I agree with the findings and plan of care. MARIA D SHIPLEY MD, [facility] February 03, 2025 13:43
--- NOTE | 2025-02-03 14:29 | NUR ---
Nutrition consult per admit trigger Reviewed labs, notes, and medications. Pt with back braces in place, on HH, sedated, BG 152 (H) per chart review. Wt via standing scale, last BM 02/02/25, no edema, well nourished, no wounds, adequate nutrition per nursing. Pending labs to provide nutrition education. Recommendations: -Provide HH+ 75 gm cho -Monitor PO intake -Encourage PO intake as able -Monitor BM -If no BM >3 days consider stool softener -Monitor electrolytes -Replenish electrolytes per protocol -Monitor wts -Reweigh as able -Order Vit D, vit b-12 labs to rule out deficiencies -Order lipid panel, A1C -Provide b-complex QD -Recommend Pt to follow up with PCP -Monitor goals of care RD to follow + available for consult per protocol Addendum: 02/03/25 at [address] Amended: Links added.
[2025-02-03 14:55] LABS: HEMOGLOBIN A1C 11.9 % (4.0-6.0)
[2025-02-03] MEDS: GABApentin 100 MG CAPSULE PO SCH (15:00)
[2025-02-03] MEDS: amLODIPine 2.5 MG TAB PO ONE (15:01)
[2025-02-03 15:21] LABS: CHOLESTEROL 215 mg/dL (<200); HDL CHOLESTEROL 61 mg/dL (29-71); LDL DIRECT 136 mg/dL (0-99); TRIGLYCERIDES 150 mg/dL (30-200)
[2025-02-04 04:12] VITALS: BP 151/55; PULSE 58; RESP 20; TEMP 98.3
[2025-02-04 04:58] LABS: HEMATOCRIT 45.6 % (42-54); MEAN CORPUSCULAR HEMOGLOBIN 27.9 pg (27.0-33.0); MEAN CORPUSCULAR HGB CONC 33.1 g/dL (32.0-36.0); MEAN CORPUSCULAR VOLUME 84.3 fL (79-99); RED BLOOD CELL COUNT(AUTO) 5.41 MIL/uL (4.50-6.20); RED CELL DISTRIBUTION WIDTH 14.6 % (11.0-15.5); WHITE BLOOD COUNT (AUTO) 15.7 K/uL (4.8-10.8)
[2025-02-04 05:09] LABS: CREATININE 0.6 mg/dL (0.5-1.3); POTASSIUM 3.9 mmol/L (3.5-5.1)
[2025-02-04 07:51] VITALS: BP 178/78; PULSE 60; RESP 17; TEMP 97.8
[2025-02-04 08:00] VITALS: O2SAT 95
[2025-02-04] MEDS: amLODIPine 2.5 MG TAB PO SCH (08:15)
[2025-02-04] MEDS: doCUSate SODIUM 100 MG CAP PO PRN (08:16)
--- NOTE | 2025-02-04 08:58 | NUR ---
SUBSTANCE ABUSE RESOURCES Sw met with pt who was +Cocaine and THC on admission. Pt reports he was told to ry cocaine and THC for pain hat he could not tolerate. "It didn't help." Pt states h has only used this 1 time, and does not need resources or rehab. Pt accepted resources offered, but said "I am not going to use this". Pt states and family not aware he tired cocaine and THC. Pt denied need for referral for rehab or services at [facility].
[2025-02-04] MEDS ORDERED: dexaMETHasone SOD PHOSPHATE 4 MG/ML 1ML VIAL IV SCH (09:00)
[2025-02-04] MEDS: acetaMINOPHEN 325 MG TAB PO PRN (09:43)
[2025-02-04 10:27] VITALS: PULSE 65; RESP 17; O2SAT 96
[2025-02-04] MEDS ORDERED: FAMO20TA8 PO (11:12)
[2025-02-04] MEDS ORDERED: KETO10 PO (11:12)
[2025-02-04 11:50] VITALS: BP 164/51; PULSE 66; RESP 18; TEMP 98.2
[2025-02-04] MEDS ORDERED: CEFD300C3 PO (12:13)
[2025-02-04] MEDS ORDERED: LIDO700A30 TP (12:13)
--- NOTE | 2025-02-04 12:24 | DS ---
Discharge Summary Hospital Course Summary: Reason for Admission: Mr. Wu, a 69-year-old male, presented to the [facility] ED [facility] for evaluation of thoracic pain radiating down his left leg for 1.5 months. He was referred to the ED for further management due to leukocytosis noted in recent labs and ongoing symptoms. Hospital Course: Initial evaluation included imaging studies and lab work. A chest X-ray showed no acute pulmonary infiltrates. A CT of the thoracic spine revealed degenerative joint disease with spinal stenosis. CT of the abdomen and pelvis showed a very small fat-containing nonobstructing right inguinal hernia and chronic bilateral L5 spondylolysis contributing to low-grade anterolisthesis of L5 upon S1, with moderate bilateral neuroforaminal narrowing. 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 He was evaluated by Dr. Hess and other specialists, including a [facility] hospitalist and ER physician. Treatment included steroids, NSAIDs, and physical therapy. Due to claustrophobia, an open MRI was recommended for outpatient completion. The patient reported symptom improvement during his stay. Discharge Condition: Mr. Wu is hemodynamically stable and ready for discharge following a physical therapy evaluation. Discharge Medications: Continue home steroids Gabapentin NSAID Famotidine Follow-Up Instructions: Schedule an open MRI as an outpatient for further evaluation. Continue physical therapy as recommended. Follow up with primary care provider for ongoing management of diabetes and other conditions. Patient Education: Mr. Wu was informed about the importance of adhering to his medication regimen and follow-up appointments. He was advised to monitor for any worsening of symptoms and to seek medical attention if necessary. 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 Banuelos- neurosurgeon Procedure(s): [place] [address] [address] IMAGING REPORT Signed PATIENT: JOSHUA ERICKSON MR#: [id number] : 1955 SEX: M AGE: 69 LOCATION: EDHIP ORDER 1650 STATUS: ADM IN REPORT#: [id number] SERVICE 164 REASON: Lumbosacral tenderness left radiculopathy ORDERING PHYSICIAN: JM GARZA NP PROCEDURE: L SPIN WO - CT LUMBAR SPINE W/O CONTRAST CT ABDOMEN WITHOUT CONTRAST. CT PELVIS WITHOUT CONTRAST. CT LUMBAR SPINE WITHOUT CONTRAST INDICATION: Diffuse lower abdominal pain TECHNIQUE: Routine transaxial imaging using 5 mm slice thickness through the abdomen and pelvis without the administration of IV contrast. Thin slice reconstructions are also provided. Coronal and sagittal reformatted images acquired for interpretation. CT was performed with one or more of the following dose reduction techniques: Automated exposure control, adjustment of the mA and/or kV according to patient size, or use of iterative reconstruction technique. COMPARISON: None FINDINGS: ON NONCONTRAST IMAGING: ABDOMEN: Heart size is normal. Coronary arterial wall calcific plaque noted. Visible lung bases are clear. No abnormal renal calcifications, hydronephrosis, perinephric inflammation, or proximal hydroureter detected. Residual contrast within the urinary system. The liver is normal in size and smooth in contour without biliary duct dilation. The spleen is normal in size and attenuation. The gallbladder appears normal. The pancreas appears normal without pancreatic duct dilation. The adrenal glands appear normal. No significant abdominal, retrocrural or retroperitoneal adenopathy noted. No evidence for intra-abdominal free air or organized fluid collection. Mild calcific plaque is noted along the abdominal aortic and iliac vessel [place] without aneurysmal dilation. PELVIS: Very small fat-containing nonobstructing right inguinal hernia. No abnormal calcifications within the urinary bladder or distal ureters. No evidence for free air or organized pelvic fluid collection. No significant pelvic adenopathy detected. Visualized small and large bowel loops appear unremarkable. Terminal ileum appears unremarkable. The appendix appears normal. Chronic bilateral L5 spondylolysis contributing to low-grade (14 mm) anterolisthesis of L5 upon S1. Moderate to severe disc height loss at the same level. Secondary at least moderate bilateral neuroforaminal narrowing. Shallow lumbar levoscoliosis. Multilevel mild anterior endplate osteophytic spurring. Multilevel moderate bilateral facet disease, including moderate bilateral hypertrophic facet disease at the L3-L4 level, L4-L5 level, and much less pronounced at the L5-S1 level. IMPRESSION: Very small fat-containing nonobstructing right inguinal hernia without evidence for any acute intra-abdominal or pelvic process. Chronic bilateral L5 spondylolysis contributing to low-grade (14 mm) anterolisthesis of L5 upon S1, and secondary at least moderate bilateral neuroforaminal narrowing without any significant central canal stenosis. Arteriosclerotic disease as described. DICTATED BY: BIJAL BAIRD MD DATE: 02/02/251910 ELECTRONICALLY SIGNED BY: BIJAL BAIRD MD DATE: 02/02/251918 [address] [place] [id number] IMAGING REPORT Signed PATIENT: JOSHUA ERICKSON MR#: [id number] : 1955 SEX: M AGE: 69 LOCATION: EDHIP ORDER 49 STATUS: ADM IN [facility] REPORT#: [id number] SERVICE 48 REASON: Diffuse lower abdominal pain, 15 K WBCs ORDERING PHYSICIAN: JM GARZA NP PROCEDURE: ABD PEL WO - CT ABDOMEN/PELVIS W/O CONTRAST CT ABDOMEN WITHOUT CONTRAST. CT PELVIS WITHOUT CONTRAST. CT LUMBAR SPINE WITHOUT CONTRAST INDICATION: Diffuse lower abdominal pain TECHNIQUE: Routine transaxial imaging using 5 mm slice thickness through the abdomen and pelvis without the administration of IV contrast. Thin slice reconstructions are also provided. Coronal and sagittal reformatted images acquired for interpretation. CT was performed with one or more of the following dose reduction techniques: Automated exposure control, adjustment of the mA and/or kV according to patient size, or use of iterative reconstruction technique. COMPARISON: None FINDINGS: ON NONCONTRAST IMAGING: ABDOMEN: Heart size is normal. Coronary arterial wall calcific plaque noted. Visible lung bases are clear. No abnormal renal calcifications, hydronephrosis, perinephric inflammation, or proximal hydroureter detected. Residual contrast within the urinary system. The liver is normal in size and smooth in contour without biliary duct dilation. The spleen is normal in size and attenuation. The gallbladder appears normal. The pancreas appears normal without pancreatic duct dilation. The adrenal glands appear normal. No significant abdominal, retrocrural or retroperitoneal adenopathy noted. No evidence for intra-abdominal free air or organized fluid collection. Mild calcific plaque is noted along the abdominal aortic and iliac vessel [place] without aneurysmal dilation. PELVIS: Very small fat-containing nonobstructing right inguinal hernia. No abnormal calcifications within the urinary bladder or distal ureters. No evidence for free air or organized pelvic fluid collection. No significant pelvic adenopathy detected. Visualized small and large bowel loops appear unremarkable. Terminal ileum appears unremarkable. The appendix appears normal. Chronic bilateral L5 spondylolysis contributing to low-grade (14 mm) anterolisthesis of L5 upon S1. Moderate to severe disc height loss at the same level. Secondary at least moderate bilateral neuroforaminal narrowing. Shallow lumbar levoscoliosis. Multilevel mild anterior endplate osteophytic spurring. Multilevel moderate bilateral facet disease, including moderate bilateral hypertrophic facet disease at the L3-L4 level, L4-L5 level, and much less pronounced at the L5-S1 level. IMPRESSION: Very small fat-containing nonobstructing right inguinal hernia without evidence for any acute intra-abdominal or pelvic process. Chronic bilateral L5 spondylolysis contributing to low-grade (14 mm) anterolisthesis of L5 upon S1, and secondary at least moderate bilateral neuroforaminal narrowing without any significant central canal stenosis. Arteriosclerotic disease as described. DICTATED BY: BIJAL BAIRD MD DATE: 02/02/251910 ELECTRONICALLY SIGNED BY: BIJAL BAIRD MD DATE: 02/02/251918 [place] [address] IMAGING REPORT Signed PATIENT: JOSHUA ERICKSON MR#: [id number] : 1955 SEX: M AGE: 69 LOCATION: ED ORDER 112 STATUS: REG REPORT#: [id number] SERVICE 1121 REASON: Midline lower thoracic spine pain. Fifteen thousand WBCs rule out abscess ORDERING PHYSICIAN: JM GARZA NP PROCEDURE: T SPINE W - CT THORACIC SPINE W/ CONTRAST CT THORACIC SPINE W/ CONTRAST HISTORY: Pain COMPARISON: None TECHNIQUE: Multiple sequential axial images of the thoracic spine were obtained including post processing sagittal and coronal reconstruction images. Patient was not given contrast through intravenous route. FINDINGS: There is no loss of vertebral height. Evaluation for disc and cord pathology is limited with CT study. No evidence of fracture or dislocation is seen. There are degenerative changes with dorsal spine spondylosis. IMPRESSION: 1. No fracture is seen. DJD with evidence of spinal stenosis. CT was performed with one or more following dose reduction techniques: automated exposure control, adjustment of the mA and kv according to patient's size, or use of a iterative reconstruction technique. DICTATED BY: TATO ROBLES MD DATE: 02/02/25 1518 ELECTRONICALLY SIGNED BY: TATO ROBLES MD DATE: 02/02/[address] [address] IMAGING REPORT Signed PATIENT: JOSHUA ERICKSON MR#: [id number] : 1955 SEX: M AGE: 69 LOCATION: [facility] ORDER 1123 STATUS: REG HOSPITAL REPORT#: [id number] SERVICE 112 REASON: SOB/cough ORDERING PHYSICIAN: JM GARZA [employer] DIRECTOR PROCEDURE: CXR1VW - CHEST 1VW CHEST 1VW HISTORY: Shortness of breath COMPARISON: None FINDINGS: A frontal projection of the chest was obtained. No acute pulmonary infiltrates is seen. The heart is normal in size. Prominent interstitial markings are seen. No evidence of aortic calcification is seen. IMPRESSION: 1. No acute pulmonary infiltrate is seen. DICTATED BY: TATO ROBLES MD DATE: 02/02/25 1238 ELECTRONICALLY SIGNED BY: TATO ROBLES MD DATE: 02/02/25 1243 Assessment/Plan: Admitting Diagnoses: DJD with evidence of spinal stenosis, per CT on 02/02/2025 Chronic bilateral L5 spondylolysis contributing to low-grade (14 mm) anterolisthesis of L5 upon S1, per CT on 02/02/2025 Moderate bilateral neuroforaminal narrowing without any significant central canal stenosis, per lumbar spine CT on 02/02/2025 Spondylosis of thoracic spine with radiculopathy Acute complicated cystitis, POA Leukocytosis, POA Systemic inflammatory response syndrome (SIRS) Acute on chronic back pain, POA Hyperglycemia with a history of DM, POA Hypochloremia, POA Fat-containing nonobstructing right inguinal hernia without evidence for any acute intra-abdominal or pelvic process, per CT on 02/02/2025 Arteriosclerotic disease Cocaine abuse and marijuana abuse, per UA on 02/02/2025 Home Medications: Reported Medications Acetaminophen (Acetaminophen Extra Strength) 500 Mg Tablet, 2 TAB PO Q8H PRN for pain for 1 Day, #20 TAB 0 Refills 02/02/25 Prednisone (Prednisone) 20 Mg Tablet, 20 MG PO DAILY, TAB 02/02/25 Gabapentin (Gabapentin) 400 Mg Capsule, 1 CAP PO TID 02/02/25 Time spent arranging discharge: 31-60 minutes ATTESTATION BY PHYSICIAN I have seen and examined the patient. I reviewed the documentation, medical decision making, and treatment plan as noted by the mid-level provider above. I agree with the findings and plan of care. MARIA D SHIPLEY MD, [facility] February 04, 2025 12:24
--- NOTE | 2025-02-06 20:16 | CONS ---
HISTORY OF PRESENT ILLNESS: The patient is a 69-year-old patient who has been admitted through the Emergency Room and he has been with intractable lower back pain. The patient referred for the past couple of weeks, he has been with back pain radiating to the left leg, sciatic pain as he indicates. He denies any history of trauma, although he referred that he has chronic back pain. PHYSICAL EXAMINATION: GENERAL: He is awake, alert, still with some marked back pain and leg pain in the left side. He has no respiratory distress. ABDOMEN: Soft and depressible. He has been voiding spontaneously. There are no sensory disturbances noted. Marked straight leg raise positive, less than 30 degrees in the left leg with tenderness in the lower back. IMAGING: The CAT scan was reviewed and he has spondylolisthesis at L5-S1 with some marked encroachment of the nerve root of L5 in the foramen on the left side. PLAN: He refers doing somewhat better with the pain medication, we will continue this. It was explained that an MRI under sedation might be an option to better visualize the area, but he states that he has claustrophobia and being in the MRI is kind of hard for him. Again, we will try to get this under anesthesia and we will decide from there. The patient was assessed with the staff nurse present. He has no known drug allergies and he prefers no other surgeries. TID: [id number] RECEIPT: [id number]
--- NOTE | 2025-02-07 13:41 | NUR ---
Transitional Phone Call Spoke to patient, states "doing basically the same." States some of the new prescriptions are coming in the mail, confirmed [facility]; no questions or concerns with medications. States set up a follow up appointment with [facility] - Dr. Alvarado on 02/14/2025; states wants to hold on making appointment with surgeon - Dr. Lalo Ng until after physical therapy. No questions or concerns at this time.
== END 2025-02-04 14:15 | disposition home or self-care (01) | DRG 552 ==
LOC: EDH 10:35 → EDHIP 19:00 → 4DH 21:29
PROVIDERS: ADMIT Internal Medicine; ATTEND Internal Medicine
DX: M47.24 Other spondylosis with radiculopathy, thoracic region (principal); N30.00 Acute cystitis without hematuria; R65.10 Systemic inflammatory response syndrome (SIRS) of non-infectious origin without acute organ dysfunction; E87.8 Other disorders of electrolyte and fluid balance, not elsewhere classified; E11.65 Type 2 diabetes mellitus with hyperglycemia; G89.29 Other chronic pain; M48.04 Spinal stenosis, thoracic region; K40.90 Unilateral inguinal hernia, without obstruction or gangrene, not specified as recurrent; F14.10 Cocaine abuse, uncomplicated; F12.10 Cannabis abuse, uncomplicated; I25.10 Atherosclerotic heart disease of native coronary artery without angina pectoris; M41.9 Scoliosis, unspecified; M43.17 Spondylolisthesis, lumbosacral region; K59.00 Constipation, unspecified; Z20.822 Contact with and (suspected) exposure to COVID-19; I10 Essential (primary) hypertension
CPT/HCPCS: 36415; 71045; 72129; 72131; 74176; 80048; 80061; 80305; 81001; 82306; 82607; 83036; 83605; 83735; 84100; 84443; 85025; 85027; 87040; 87086; 87426; 87804; 87880; 96374; 99285; G0378; J0696; J1100; J1885; J3475; Q9967